=== PATIENT | male | born 1985 | race Hispanic/Latino ===

== ENCOUNTER 2017-10-14 07:27 | Day surgery (SDC) | payer OTHER ==
[~2017-10-14] VITALS: Ht 177.8 cm; Wt 85.7 kg
[~2017-10-14 07:27] MED LIST: CIPRO XR500 MG PO; FLAGYL500 MG PO; LORTAB 7.5 PO; NO MEDS; PRILOSEC20 MG/CAP PO; SYMBICORT1 AE1 IN; [UNRECOGNIZED DRUG - CODE] PO
[2017-10-14] MEDS ORDERED: PERCOCET 5/321 COMBO PO (11:11)
[2017-10-14 13:00] VITALS: BP 119/68
== END 2017-10-14 11:38 | disposition home or self-care (01) | DRG 352 ==
LOC: ORM 07:27
PROVIDERS: ATTEND Surgery
PROC: 0YU50JZ Supplement Right Inguinal Region with Synthetic Substitute, Open Approach (ICD-10-PCS; principal; 2017-10-14)
DX: K40.90 Unilateral inguinal hernia, without obstruction or gangrene, not specified as recurrent (principal)
CPT/HCPCS: C9290

== ENCOUNTER 2022-06-12 21:47 | Emergency (ER) | payer OTHER ==
[~2022-06-12] VITALS: Ht 177.8 cm; Wt 84.1 kg
[~2022-06-12 21:47] MED LIST changes: +PERCOCET 5/321 COMBO PO
[2022-06-12 22:33] LABS: HEMOGLOBIN 16.2 g/dl (14.0-18.0); IMMATURE GRANULOCYTES 0.2 % (0.0-5.0); MEAN CELL VOLUME 91.6 fL CALC (80.0-100.0); MEAN CORPUSCULAR HGB 32.3 pG CALC (26.0-32.0); MEAN CORPUSCULAR HGB CONC 35.2 g/dL CAL (32.0-36.0); NEUT# 4.66 thou/uL (1.82-7.42); RED BLOOD COUNT 5.02 mill/uL (4.70-6.10); RED CELL DISTRI WIDTH 12.7 % (11.5-15.5)
[2022-06-12 22:45] LABS: ALKALINE PHOSPHATASE 93 u/l (38-126); BILIRUBIN, TOTAL 1.6 mg/dL (0.0-1.4); BUN 16 mg/dL (9-20); BUN/CREATININE RATIO 18 (12-20 (CALC)); CHLORIDE 103 mmol/l (95-108); CREATININE 0.9 mg/dL (0.7-1.3); D-DIMER 0.17 mg/L (0.19-0.60); GFR FOR AFR.AMER. > 60 ML/MIN (>=60 (CALC)); GFR OTHER RACES > 60 ML/MIN (>=60 (CALC)); SGOT/AST 40 u/l (17-59); SODIUM 138 mmol/l (137-146); TOTAL PROTEIN 8.8 g/dL (6.3-8.2)
[2022-06-12 22:53] LABS: ACT PARTIAL THROMBO TIME 23.2 SECONDS (20.0-32.5); PROTHROMBIN TIME 9.9 SECONDS (9.0-12.5)
[2022-06-12 22:56] LABS: MYOGLOBIN 80 ng/mL (0 - 121)
[2022-06-12 22:57] LABS: ANION GAP 20 (6-22 (CALC)); CARBON DIOXIDE 19 mmol/l (22-30); POTASSIUM 3.5 mmol/l (3.5-5.1)
[2022-06-13] VITALS: BP 160/103
[2022-06-13] MEDS ORDERED: LISINOPRIL10 MG PO (00:07)
== END 2022-06-13 00:16 | disposition home or self-care (01) | DRG 310 ==
LOC: ED 21:47
PROVIDERS: Family Medicine
DX: R00.2 Palpitations (principal); I10 Essential (primary) hypertension